=== PATIENT | female | born 1965 | race Caucasian/White ===

== ENCOUNTER 2022-09-21 11:44 | Emergency (ER) | payer OTHER, SELFPAY ==
[2022-09-21 12:02] VITALS: BP 167/84; PULSE 77; RESP 18; TEMP 36.9; O2SAT 97; BMI 27.4
--- NOTE | 2022-09-21 12:30 | CRLHL7_ITS ---
For Patients: As a result of the Century Cures Act, medical imaging exams and procedure reports are released immediately into your electronic medical record. You may view this report before your referring provider. If you have questions, please contact your health care provider. Indication: Trauma Technique: Three views of the left 5th digit were acquired Comparison: None Findings: There is a dorsal dislocation the PIP the left 5th finger. The distal relative to proximal component is located behind the head the proximal phalanx towards the ulnar side. There is no definite fracture. Recommend repeat imaging after reduction of the dislocation to entirely exclude fracture. Sometimes, a dorsal plate fractures visible after reduction. Impression: Dorsal dislocation at the PIP of the left 5th finger. No visible fracture. Reimaging after reduction of the dislocation to entirely exclude a fracture. Dictated by Pineda Altamirano MD @ 09/21/2022 1:40:51 PM (Electronically Signed)
--- NOTE | 2022-09-21 13:11 | CRLHL7_ITS ---
For Patients: As a result of the Cures Act, medical imaging exams and procedure reports are released immediately into your electronic medical record. You may view this report before your referring provider. If you have questions, please contact your health care provider. Indication: Postreduction Technique: A total of three views of the left 5th digit were acquired. Comparison: Earlier the same day Findings: Bones: No acute fracture or destructive process. Joint spaces: Osteoarthritis. Reduction the dislocation the PIP. Soft tissues: No acute soft tissue abnormality Impression: The dislocation at the PIP the left 3rd digit has been reduced. 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 No acute fracture identified postreduction. Dictated by Pineda Altamirano MD @ 09/21/2022 2:42:24 PM (Electronically Signed)
--- NOTE | 2022-09-21 13:25 | ED.GENADULT ---
HPI - General Adult General Date Seen: 09/21/22 Chief complaint: Extremity Pain/Injury, Upper Stated complaint: Left pinky injury Time Seen by Provider: 09/21/22 11:53 Source: patient History of Present Illness HPI narrative: Patient is a 57-year-old woman who says she tripped in her kitchen on the way out the door to head to work this morning injuring her left 5th finger. It was noticeably deformed. She went to [facility] where she says she had x-rays. They told her that there was a dislocation although she does not know if there was also a fracture. She says that they did numb the finger up and she thinks that they tried to reduce it although she says she was not watching because she felt very hot and they said she was white as a ghost. She does not know exactly what they did. She did say that the person who was working on the finger said that it was at 1 point reduced but then it fell back out of place. She does not think repeat x-rays were done. In any case, she was told to come here for further care. She denies other injuries or complaints. She does have a history of prior injury to this finger and so it always looks a little funny but not this funny. Related Data Home Medications Medication Instructions Recorded Confirmed omeprazole 40 mg capsule,delayed mg PO DAILY PRN 08/10/22 08/10/22 release Allergies Allergy/AdvReac Type Severity Reaction Status Date / Time penicillin V Allergy Severe Unknown Verified 09/21/22 12:02 latex Allergy Intermediate Rash Verified 09/21/22 12:02 nitrofurantoin Allergy Intermediate feet Verified 09/21/22 12:02 swelling almond Allergy Mild Swelling Verified 09/21/22 12:02 of Lip/Tongue/Throat [facility] Medical History History of concussion Surgical History History of esophagogastroduodenoscopy (EGD) History of foot surgery Family History Mother Breast cancer Coronary artery disease High blood pressure Father Coronary artery disease Social History Narrative: does not use illicit drugs, non smoker Smoking Status: Never smoker Do you use any of these nicotine containing products: None Second hand tobacco smoke exposure: No How often do you have a drink containing alcohol: never How often do you have six or more drinks on one occasion: Never AUDIT-C Alcohol total score: 0 Non-prescribed substance use: denies use Exam Narrative: Exam Narrative: Vital signs reviewed In general, an alert, nontoxic woman. Extremities: Examination of the left hand shows that the pinky finger is deviated in an ulnar direction at the MCP joint. There is swelling of the finger. She indicates pain diffusely throughout the finger. There is also deformity palpable at the PIP joint. Tenderness throughout the finger. Distal CMS is normal. Skin is intact, no lacerations. Skin: Warm dry well perfused. Const: Vital Signs, click to edit/add: Vital Signs - 24 hr 09/21/22 12:02 Temperature 98.5 F Pulse Rate [Pulse Oximeter] 77 Respiratory Rate 18 Blood Pressure [Ri ght Upper Arm] 167/84 H Pulse Oximetry 97 Oxygen Delivery Me thod Room Air Course Course Hospital Course: They did not send x-rays with her so I repeated x-rays of the left 5th finger. She has a dislocation of the PIP joint. The MCP joint looks intact despite the ulnar deviation at that joint. In palpating the PIP joint, it certainly does not feel significantly lax. I recommended that we repeat the digital block and try another attempt at reduction of the PIP joint, she agreed. Procedure note: A digital block was placed using 1% xylocaine with epinephrine. We had good anesthesia with that. I did reduce the PIP joint and it seems to have stayed in place throughout splinting. Repeat x-rays by my review show reduction of the dislocation. Will have her follow up with Orthopedics to check stability. Ibuprofen or Tylenol as needed. I gave her a note to minimize use of that hand at work until she is re-evaluated. Vital Signs Vital signs: Initial Vital Signs Temperature 98.5 F 09/21/22 12:02 Temperature Source Temporal Artery Scan 09/21/22 12:02 Pulse Rate 77 09/21/22 12:02 Pulse Rhythm 09/21/22 12:02 Respiratory Rate 18 09/21/22 12:02 Blood Pressure 167/84 H 09/21/22 12:02 Blood Pressure Mean 111 09/21/22 12:02 Blood Pressure Position Sitting 09/21/22 12:02 Pulse Oximetry 97 09/21/22 12:02 Oxygen Delivery Method 09/21/22 12:02 Vital Signs Temperature 98.5 F 09/21/22 12:02 Pulse Rate 77 09/21/22 12:02 Respiratory Rate 18 09/21/22 12:02 Blood Pressure 167/84 H 09/21/22 12:02 Pulse Oximetry 97 09/21/22 12:02 Oxygen Delivery Method 09/21/22 12:02 Temperature 98.5 F 09/21/22 12:02 Pulse Rate 75 09/21/22 13:55 Respiratory Rate 18 09/21/22 12:02 Blood Pressure 167/84 H 09/21/22 12:02 Pulse Oximetry 97 09/21/22 13:55 Oxygen Delivery Method 09/21/22 13:55 Discharge Plan Discharge Clinical Impression: Dislocation of finger PIP joint Patient Disposition: Home, Self-Care Condition: Improved Instructions: Finger Dislocation (ED) Additional Instructions: Leave splint on until follow-up. Orthopedic follow-up in the next week or so to assess stability. Ibuprofen or Tylenol if needed. Prescriptions: No Action omeprazole 40 mg capsule,delayed release(DR/EC) PO DAILY PRN Follow Up/Referrals: Magi Cramer PA-C [Primary Care Provider] - Stand Alone [facility]
[2022-09-21 13:55] VITALS: PULSE 75; O2SAT 97
== END 2022-09-21 14:02 | disposition home or self-care (01) ==
PROVIDERS: Emergency Provider Emergency Medicine; PCP Physician Assistant Medical
DX: S63.257A Unspecified dislocation of left little finger, initial encounter (principal); W18.30XA Fall on same level, unspecified, initial encounter; Y93.9 Activity, unspecified; Y92.019 Unspecified place in single-family (private) house as the place of occurrence of the external cause; Y99.9 Unspecified external cause status
CPT/HCPCS: 29130; 73140; 99282; 99283

== ENCOUNTER 2023-02-13 10:46 | Outpatient (CLI) | payer OTHER, SELFPAY | END 2023-02-13 10:47 | disposition home or self-care (01) | PROVIDERS: PCP Physician Assistant Medical; Visit Provider Family Medicine | DX: Z00.00 Encounter for general adult medical examination without abnormal findings (principal); R03.0 Elevated blood-pressure reading, without diagnosis of hypertension; Z13.6 Encounter for screening for cardiovascular disorders; Z11.59 Encounter for screening for other viral diseases | CPT/HCPCS: 80053; 80061; 86803 ==

== ENCOUNTER 2024-04-15 10:09 | Outpatient (CLI) | payer OTHER, SELFPAY ==
--- OUTSIDE RECORDS SUMMARY | 2024-04-15 10:14 | XMS_ITS | Clinical Summary ---
Author Organization [facility] Address [place], [place] [address] Care Team Providers Care Polysomnographic Technician Name Role Phone Pcp, No Primary Care Provider Unavailabl e Allergies Active Allergy Reactions Criticality Noted Date Comments Penicillins Hives 09/21/2022 Medications Medication Sig Dispensed Refills Start Date End Date Status omeprazole (PRILOSEC) 40 mg Delayed-Release capsule Take 40 mg by mouth once daily. 05/09/2022 Active triamcinolone (ARISTOCORT; KENALOG) 0.1 % cream APPLY TO AFFECTED AREA TWICE A DAY 05/09/2022 Active Active Problems Problem Noted Date Diagnosed Date FINGER SPRAIN 05/12/2005 CERVICALGIA 10/21/2001 LUMBAGO 04/23/2001 Immunizations Name Administration Dates Next Due Tuberculin (PPD) 02/15/2000 Family History Medical History Relation Name Comments Genetic Other mother CAD~fath er HTN Relation Name Status Comments Other Social History Tobacco Use Types Packs/Day Years Used Date Smoking Tobacco: Former Cigarettes Sex and Gender Information Value Date Recorded Sex Assigned at Not on file Gender Identity Not on file Sexual Orientation Not on file Obstetrics History Last Filed Vital Signs Vital Sign Reading Time Taken Comments Blood Pressure 169/92 09/21/2022 9:01 AM QC CHEMIST Pulse 72 09/21/2022 9:01 AM QC CHEMIST Temperature 36.7 ??C (98 ??F) 09/21/2022 9:01 AM QC CHEMIST Respiratory Rate 16 09/21/2022 9:01 AM QC CHEMIST Oxygen Saturation 96% 09/21/2022 9:01 AM QC CHEMIST Inhaled Oxygen Concentration - - Weight 64.4 kg (142 lb) 05/12/2005 12:00 AM CDT Height 157.5 cm (5' 2) 10/28/2002 12:00 AM QC CHEMIST Body Mass Index 25.97 10/28/2002 12:00 AM QC CHEMIST Plan of Treatment Health Maintenance Due Date Last Done Comments Tdap 1977 Depression screening for age 12+ 1978 HIV for age 15-65 1981 BMI (ht and wt on same day) for age 18+ 1984 Hepatitis C screening for ag e 18-79 1984 Tetanus booster 1986 Pap test for age 21-65 1987 Colonoscopy through age 75 2011 Lipids for age 45-75 2011 Mammogram for age 45-75 2011 Zoster (shingles) series for age 50+ (1 of 2) 2016 COVID-19 vaccine series (2022- season) 2023 02/10/2022, 02/03/2021, 12/30/2020 Influenza for age 50-64 07/13/2024 Pneumococcal series for age 6-64 Aged Out No longer eligible b ased on patient's age to complete this topic Care Teams Polysomnographic Technician Relationship Specialty Start Date End Date Pcp, No . PCP - General 09/21/22
== END 2024-04-15 10:10 | disposition home or self-care (01) ==
PROVIDERS: PCP Family Medicine; Visit Provider Family Medicine
DX: R03.0 Elevated blood-pressure reading, without diagnosis of hypertension (principal); Z13.220 Encounter for screening for lipoid disorders
CPT/HCPCS: 80053; 80061; 82043; 82570

== ENCOUNTER 2024-05-12 12:01 | Outpatient (CLI) | payer OTHER, SELFPAY ==
--- OUTSIDE RECORDS SUMMARY | 2024-05-12 12:04 | XMS_ITS | Clinical Summary ---
Author Organization [employer] [facility] Address [place], [place] [address] Care Team Providers Care Storage Center Manager Name Role Phone Pcp, No Primary Care [...] Comments Blood Pressure 169/92 09/21/2022 9:01 AM NUT PICKER Pulse 72 09/21/2022 9:01 AM NUT PICKER Temperature 36.7 ??C (98 ??F) 09/21/2022 9:01 AM NUT PICKER Respiratory Rate 16 09/21/2022 9:01 AM NUT PICKER Oxygen Saturation 96% 09/21/2022 9:01 AM NUT PICKER Inhaled Oxygen Concentration - - Weight 64.4 kg (142 lb) 05/12/2005 12:00 AM CDT Height 157.5 cm (5' 2) 10/28/2002 12:00 AM NUT PICKER Body Mass Index 25.97 10/28/2002 12:00 AM NUT PICKER Plan of Treatment Health Maintenance Due Date [...] age to complete this topic Care Teams Storage Center Manager Relationship Specialty Start Date End Date Pcp, No . PCP - General 09/21/22
--- NOTE | 2024-05-12 12:37 | W.ANESCHARGE ---
Anesthesia Charges Start Date/Time Anesthesia Start Date: 05/12/24 Anesthesia Start Time: 13:00 Stop Date/Time Anesthesia Stop Date: 05/12/24 Anesthesia Stop Time: 13:22
--- NOTE | 2024-05-12 13:21 | W.ANESCHARGE ---
Anesthesia Charges Start Date/Time Anesthesia Start Date: 05/12/24 Anesthesia Start Time: 13:00 Stop Date/Time Anesthesia Stop Date: 05/12/24 Anesthesia Stop Time: 13:22
== END 2024-05-12 12:02 | disposition home or self-care (01) ==
LOC: OP CLINIC 12:02
PROVIDERS: PCP Family Medicine; Visit Provider Surgery
DX: Z12.11 Encounter for screening for malignant neoplasm of colon (principal)
CPT/HCPCS: 00812; 45378; J2704